=== PATIENT | female | born 1980 | race Caucasian/White ===

== ENCOUNTER 2021-08-09 21:08 | Emergency (ER) | payer SELFPAY ==
--- NOTE | 2021-08-09 | ECG_ITS ---
Test Reason : RECHECK Blood Pressure : / mmHG Vent. Rate : 064 BPM Atrial Rate : 064 BPM P-R Int : 166 ms QRS Dur : 078 ms QT Int : 418 ms P-R-T Axes : 049 059 024 degrees QTc Int : 431 ms Normal sinus rhythm Normal ECG No previous ECGs available Referred By: Generic ED Physician Electronically Signed By:ANGELA DE SOUZA MD
[2021-08-09 22:21] VITALS: BP 136/89; PULSE 74; RESP 16; TEMP 36.8; O2SAT 96; BMI 19.2
[2021-08-09 22:54] LABS: Basophils Absolute Auto 0.1 X10*3/uL (0.0-0.2); Basophils Percent Auto 0.6 % (0-2); Eosinophils Absolute Auto 0.1 X10*3/uL (0.0-0.4); Eosinophils Percent Auto 1.7 % (0-4); Hemoglobin 7.2 g/dl (12.0-16.0); Imm Gran Abs Auto 0.02 X10*3/uL (0.00-0.03); Imm Gran Pct Auto 0.3 % (0.0-0.4); Lymphocytes Absolute Auto 2.7 X10*3/uL (1.2-4.9); Lymphocytes Percent Auto 34.9 % (20-40); MANUAL DIFF FLAG NO; Mean Corpuscular Hemoglobin 19.2 pg (27.0-33.0); Mean Platelet Volume 8.6 fL (9.4-12.3); Monocytes Absolute Auto 0.6 X10*3/uL (0.1-1.2); Monocytes Percent Auto 7.6 % (2-11); Neutrophils Absolute Auto 4.3 x10*3/uL (2.0-8.3); Neutrophils Percent Auto 54.9 % (45-73); Platelet Count 835 X10*3/uL (160-400); Red Blood Count 3.75 X10*6/uL (4.20-5.50); Red Cell Distribution Width 24.2 % (11.0-16.0); White Blood Count 7.8 X10*3/uL (4.8-10.8)
[2021-08-09 22:57] LABS: COVID-19 Test Negative (Negative)
[2021-08-09 23:03] LABS: Alanine Aminotransferase 27 U/L (0-31); Albumin Level 3.9 g/dL (3.5-5.0); Alkaline Phosphatase 52 U/L (39-117); Anion Gap 12 (12-20); Aspartate Amino Transferase 20 U/L (5-31); Bilirubin Total 0.4 mg/dL (0.0-1.0); Blood Urea Nitrogen 14 mg/dL (9-16); Calcium 9.1 mg/dL (8.4-10.2); Carbon Dioxide 23 mmol/L (22-29); Chloride 107 mmol/L (96-108); Creatinine Clr Calc Pharmacy 100.7; Estimated Glomerular Filt Rate > 60; Glucose Random 81 mg/dL (60-115); Potassium 4.4 mmol/L (3.3-5.1); Sodium 138 mmol/L (135-145); Total Protein 7.4 g/dL (6.5-8.0)
[2021-08-10] VITALS (7 sets, daily range): BP systolic 96–116; BP diastolic 52–73; PULSE 55–76; RESP 13–18; TEMP 36.7; O2SAT 100
--- NOTE | 2021-08-10 06:13 | ED.GENADULT ---
HPI - General Adult General Chief complaint: Recheck/Abnormal Lab/Rx Stated complaint: headache ? transfusion per md Time Seen by Provider: 08/10/21 00:21 Source: patient Mode of arrival: ambulatory Limitations: no limitations History of Present Illness HPI narrative: 41-year-old female who presents emergency department for evaluation of symptomatic anemia. The patient states that she had a gastric bypass surgery done in the [place] in May of 2020. The patient is currently being followed by a bariatric provider at [facility], [place]. Three weeks prior the patient was found to be anemic and was started on oral iron supplementation. The patient had a follow-up today and had a repeat hematocrit hemoglobin and was told that she should go to the emergency department for blood transfusions. The patient states that she has been symptomatic. She has been feeling weak, dizzy, having palpitations, she has had significant dyspnea on exertion and shortness of breath at rest as well. She states she does have a history of ?heartburn in uses antacids. She states that she was on omeprazole in the past but is now on a different medication for her GERD. She states that she has noticed dark stools but she attributes this to her iron supplements. Related Data Allergies Allergy/AdvReac Type Severity Reaction Status Date / Time No Known Allergies Allergy Verified 08/09/21 22:28 Review of Systems Review of Systems: Yes all other systems are reviewed and are negative [facility] Past Medical History [facility] Narrative: Past medical history: None. Past surgical history: Gastric bypass 05/2020 in the [place], left shoulder surgery. Social history: She denies tobacco, alcohol and drug use. Medical History (Updated 08/10/21 @ 06:16 by Myke Astorga MD) Anemia Surgical History (Updated 08/09/21 @ 22:26 by Ana Pereyra) S/P gastric sleeve procedure Social History Social History Advance Directives: No Patient : No Physical Exam Vital Signs: Vital Signs: Last Vital Signs Temp 98.0 F 08/10/21 06:08 Pulse 76 08/10/21 06:08 Resp 18 08/10/21 06:08 BP 101/57 L 08/10/21 06:08 Pulse Ox 100 08/10/21 00:42 BMI result Body Mass Index 19.2 Const: General: cooperative and no acute distress Orientation/consciousness: oriented to person and oriented to place Limitations: no limitations HENMT: Head: Yes normal to inspection, Yes normocephalic and Yes atraumatic Ears: external ears normal General nose exam: Normal external nose present Face and sinus: Yes normal facial exam Mouth: Normal oral and palatal mucosa present Throat: Yes posterior oropharynx normal Eyes: General: appearance normal, both eyes and all related structures Pupils: Equal, round and reactive pupils present Neck: Neck: Yes normal visual inspection, Yes no lymphadenopathy, Yes trachea midline and Yes supple Chest: Chest palpation & inspection: normal inspection of the chest and normal palpation of entire chest wall Resp: Effort & Inspection: normal respiratory effort and able to speak in complete sentences Auscultation: clear to auscultation bilaterally Cardio: Rate: regular rate Rhythm: regular rhythm Heart sounds: S1 normal heart sound present, S2 normal heart sound present and no murmurs GI: Inspection: Yes normal to inspection Palpation (GI): Soft to palpation, nontender and no guarding Auscultation: normal bowel sounds Rectal Exam - Female: visual inspection normal, normal sphincter tone and Abnormal stool present Rectal exam abnormal stool - female: black stool and other (Hemoccult negative stool) : General: Yes no CVA tenderness Back/Spine/Pelvis: Back: no CVA tenderness Skin: General skin exam: no rashes or lesions noted Neuro: General: oriented to person and oriented to place Cranial nerves: Yes CN's II-XII intact bilaterally and Yes Equal, round and reactive pupils present Cognition (Neuro): normal cognition Motor exam (neuro): 5/5 motor strength present throughout Extrem: General: Yes normal to inspection Psych: Appearance: grossly normal Speech and movement: Normal speech and movement present Affect: normal affect Attitude: cooperative Thought process: Normal thought process present Thought content: Normal thought content present Course Course Course Narrative: 41-year-old female who presents to the emergency department for evaluation of blood transfusions for symptomatic anemia. The patient had a gastric bypass surgery in May of 2020 and was found to be anemic 3 weeks prior and started on iron supplements with no improvement of her anemia. Her bariatric provider advised her to go to the emergency department for blood transfusions. Here in the emergency department her physical examination was unremarkable, her rectal exam did reveal dark stool but this was Hemoccult negative. I suspect the dark stools secondary to her iron supplementation. The patient most likely has poor absorption of iron secondary to her bypass surgery. Her laboratory evaluation did reveal low H&H of 7.2 and 24. The rest of her labs were normal. COVID-19 was negative. Patient was ordered to get 2 units of packed red blood cells transfused. 0621: The patient completed her 2 units of packed red blood cell transfusion without any complications. She is feeling better. She was discharged home. She was advised to contact her provider to discuss getting iron infusions as an outpatient and further management of her microcytic anemia. Medical Decision Making Lab Data Result diagrams: 08/09/21 22:50 08/09/21 22:37 Labs: Lab Results 08/09/21 08/09/21 08/09/21 Range/Units 22:37 22:37 22:37 WBC (4.8-10.8) X10*3/uL RBC (4.20-5.50) X10*6/uL Hgb (12.0-16.0) g/dl Hct (37.0-47.0) % MCV (80.0-98.0) fL MCH (27.0-33.0) pg MCHC (31.0-35.0) g/dl RDW (11.0-16.0) % Plt Count (160-400) X10*3/uL MPV (9.4-12.3) fL Immature Gran % (Auto) (0.0-0.4) % Neut % (Auto) (45-73) % Lymph % (Auto) (20-40) % [place] % (Auto) (2-11) % Eos % (Auto) (0-4) % Baso % (Auto) (0-2) % Lymph # (Auto) (1.2-4.9) X10*3/uL [place] # (Auto) (0.1-1.2) X10*3/uL Eos # (Auto) (0.0-0.4) X10*3/uL Baso # (Auto) (0.0-0.2) X10*3/uL Abs Immat Gran (auto) (0.00-0.03) X10*3/uL Absolute Neuts (auto) (2.0-8.3) x10*3/uL Absolute Nucleated RBC (0.0-0.012) X10*3/uL Nucleated RBC % (auto) (0.0-0.2) /100WBC Sodium 138 (135-145) mmol/L Potassium 4.4 (3.3-5.1) mmol/L Chloride 107 (96-108) mmol/L Carbon Dioxide 23 (22-29) mmol/L Anion Gap 12 (12-20) BUN 14 (9-16) mg/dL Creatinine 0.67 (0.5-1.4) mg/dL Estim Creat Clear Calc 100.7 Estimated GFR > 60 Random Glucose 81 (60-115) mg/dL Calcium 9.1 (8.4-10.2) mg/dL Total Bilirubin 0.4 (0.0-1.0) mg/dL AST 20 (5-31) U/L ALT 27 (0-31) U/L Alkaline Phosphatase 52 (39-117) U/L Total Protein 7.4 (6.5-8.0) g/dL Albumin 3.9 (3.5-5.0) g/dL COVID-19 ([facility]) Negative (Negative) COVID-19 Clin Com See Note Blood Type A Negative Antibody Screen NEGATIVE Crossmatch See Detail 08/09/21 Range/Units 22:50 WBC 7.8 (4.8-10.8) X10*3/uL RBC 3.75 L (4.20-5.50) X10*6/uL Hgb 7.2 L (12.0-16.0) g/dl Hct 24.0 L (37.0-47.0) % MCV 64.0 L (80.0-98.0) fL MCH 19.2 L (27.0-33.0) pg MCHC 30.0 L (31.0-35.0) g/dl RDW 24.2 H (11.0-16.0) % Plt Count 835 H (160-400) X10*3/uL MPV 8.6 L (9.4-12.3) fL Immature Gran % (Auto) 0.3 (0.0-0.4) % Neut % (Auto) 54.9 (45-73) % Lymph % (Auto) 34.9 (20-40) % [place] % (Auto) 7.6 (2-11) % Eos % (Auto) 1.7 (0-4) % Baso % (Auto) 0.6 (0-2) % Lymph # (Auto) 2.7 (1.2-4.9) X10*3/uL [place] # (Auto) 0.6 (0.1-1.2) X10*3/uL Eos # (Auto) 0.1 (0.0-0.4) X10*3/uL Baso # (Auto) 0.1 (0.0-0.2) X10*3/uL Abs Immat Gran (auto) 0.02 (0.00-0.03) X10*3/uL Absolute Neuts (auto) 4.3 (2.0-8.3) x10*3/uL Absolute Nucleated RBC 0.000 (0.0-0.012) X10*3/uL Nucleated RBC % (auto) 0.0 (0.0-0.2) /100WBC Sodium (135-145) mmol/L Potassium (3.3-5.1) mmol/L Chloride (96-108) mmol/L Carbon Dioxide (22-29) mmol/L Anion Gap (12-20) BUN (9-16) mg/dL Creatinine (0.5-1.4) mg/dL Estim Creat Clear Calc Estimated GFR Random Glucose (60-115) mg/dL Calcium (8.4-10.2) mg/dL Total Bilirubin (0.0-1.0) mg/dL AST (5-31) U/L ALT (0-31) U/L Alkaline Phosphatase (39-117) U/L Total Protein (6.5-8.0) g/dL Albumin (3.5-5.0) g/dL COVID-19 ([facility]) (Negative) COVID-19 Clin Com Blood Type Antibody Screen Crossmatch Discharge Plan Discharge Clinical Impression: Microcytic anemia Patient Disposition: Home, Self-Care Instructions: Iron Deficiency Anemia (ED), Iron Rich Diet (ED) Additional Instructions: Your hematocrit and hemoglobin were 7.2 in 24. A normal hematocrit is 37-47%. Your blood type is A negative. You were transfused 2 units of packed red blood cells. This should bring your hematocrit up to 30% and should make you feel better. You she discussed getting an transfusions with your doctor to see if this helps maintain your hematocrit. The rest of your blood work was normal. Your COVID-19 test today was negative. Follow-up with your doctor in 2 days. Please return to the emergency department if your symptoms get worse or if you develop any symptoms that are concerning to you.
== END 2021-08-10 06:25 | disposition home or self-care (01) ==
PROVIDERS: Emergency Provider Emergency Medicine Emergency Medical Services
DX: D50.9 Iron deficiency anemia, unspecified (principal); R79.89 Other specified abnormal findings of blood chemistry; R51.9 Headache, unspecified; Z79.899 Other long term (current) drug therapy; Z20.822 Contact with and (suspected) exposure to COVID-19
CPT/HCPCS: 36415; 36430; 80053; 85025; 86850; 86900; 86901; 86923; 87635; 93005; 99284; 99285; P9016